=== PATIENT | female | born 1990 | race Caucasian/White ===

== ENCOUNTER 2023-12-19 09:38 | Emergency (ER) | payer OTHER, SELFPAY ==
--- NOTE | ~2023-12-19 | US_ITS ---
EXAMINATION: US ABDOMEN LIMITED CLINICAL INFORMATION: Upper abdominal pain, right upper quadrant tenderness. COMPARISON: None available. TECHNIQUE: Real-time imaging of the right upper quadrant abdominal viscera. FINDINGS: PANCREAS: Normal head and body, the tail is obscured by bowel gas. LIVER: The liver is normal in size. The liver contour is normal. Parenchymal echogenicity is normal. 0.6 x 0.4 x 0.6 cm cyst with a single thin septation is seen within the left lobe. There is no intrahepatic biliary duct dilatation seen. GALLBLADDER: Normal. The gallbladder is physiologically distended without evidence of stones, sludge, polyps, wall thickening or pericholecystic fluid. COMMON BILE DUCT: Normal in caliber measuring 0.3 cm in diameter. RIGHT KIDNEY: Normal. No hydronephrosis. No renal calculi or focal parenchymal lesions. The kidney measures 10.1 cm in maximum dimension. FREE FLUID: None. US/US abdomen limited IMPRESSION: 1. 0.6 cm cyst with a single thin septation within the left lobe of the liver. 2. The tail of the pancreas is obscured by bowel gas.
[2023-12-19 09:41] VITALS: BP 131/70; PULSE 67; RESP 16; TEMP 36.6; O2SAT 100; BMI 26.6
[2023-12-19] MEDS: Ondansetron ODT 4 MG TAB.RAPDIS TRANSLINGU (09:46)
[2023-12-19 12:33] VITALS: BP 130/76; PULSE 76; RESP 18; TEMP 36.7; O2SAT 100
--- NOTE | 2023-12-19 12:33 | ED_ITS ---
HPI - General Adult General Chief complaint: Abdominal Pain Stated complaint: Weakness, abd pain Time Seen by Provider: 12/19/23 12:14 History of Present Illness HPI narrative: The patient is a 33-year-old female who says that she has a history of gastritis and irritable bowel syndrome. She says that yesterday she started having upper abdominal pain that was associated with nausea and vomiting. Later she also developed diarrhea. The pain was quite bad yesterday. It is still quite bad today but not as bad as yesterday. She has had similar episodes in the past. She has no history of abdominal surgeries. No definite fever. No urinary symptoms. She feels the pain primarily in her upper abdomen, possibly more on the right. Related Data Previous Rx's Medication Instructions Recorded famotidine 40 mg tablet 40 mg PO DAILY #30 tabs 12/19/23 Allergies Allergy/AdvReac Type Severity Reaction Status Date / Time Sulfa (Sulfonamide Allergy Rash Verified 12/19/23 09:41 Antibiotics) Review of Systems 2 Review of Systems: Yes all other systems are reviewed and are negative [facility] Social History Social History Advance Directives: No Physical Exam ED Vital Signs: Vital Signs - 24 hr 12/19/23 09:41 12/19/23 12:33 Temperature 98 F 98.0 F Pulse Rate 67 76 Respiratory Rate 16 18 Blood Pressure 131/70 130/76 Pulse Oximetry 100 100 Oxygen Delivery Method Room Air Room Air BMI result Body Mass Index 26.6 Const Other: The patient is awake, alert, pleasant, cooperative. She look mildly uncomfortable but not acutely toxic. HENMT Other: The face is symmetrical. ?Mucous membranes moist. Eyes Other: Pupils are round equal, conjunctivae are clear, extraocular movements intact Resp Effort & Inspection: normal respiratory effort Auscultation: clear to auscultation bilaterally Cardio Rate: regular rate Rhythm: regular rhythm Heart sounds: S1 normal heart sound present and S2 normal heart sound present GI Other: The patient is tender across the upper abdomen. She does not have lower abdominal tenderness, specifically she does not have right lower quadrant tenderness. General: Yes no CVA tenderness Back/Spine/Pelvis Back: no CVA tenderness Skin Other: Skin is dry and unremarkable Neuro Other: Awake, alert, oriented, appropriate, grossly neurologically intact. Extrem Other: No peripheral edema, no calf swelling or tenderness, no asymmetry Medications Administered Discontinued Medications Generic Name Dose Route Start Last Admin Trade Name Mindi PRN Reason Stop Dose Admin Droperidol 0.625 mg 12/19/23 12:31 12/19/23 12:55 Droperidol 5 Mg/2 Ml Vial IVPUSH 12/19/23 12:32 0.625 mg ONCE ONE Administration Famotidine 20 mg 12/19/23 12:31 12/19/23 12:55 Famotidine/Pf 20 Mg/2 Ml Vial IVPUSH 12/19/23 12:32 20 mg ONCE ONE Administration Sodium Chloride 1,000 mls @ 999 mls/hr 12/19/23 12:45 12/19/23 12:55 Ns IV 12/19/23 13:45 999 mls/hr .Q1H1M MONET Administration Ondansetron HCl 4 mg 12/19/23 09:43 12/19/23 09:46 Ondansetron Odt 4 Mg Tab.Rapdis TRANSLINGU 12/19/23 09:44 4 mg ONCE ONE Administration Medical Decision Making Medical Decision Making MDM Narrative: Patient is a 33-year-old who reports a history of gastritis who says the yesterday she developed abdominal pain associated with vomiting and then diarrhea. She had no lower abdominal tenderness. Specifically no right lower quadrant tenderness. Her labs are very unremarkable. An ultrasound of the gallbladder shows no acute finding. She was treated symptomatically with famotidine and droperidol and IV fluids. She felt considerably better and she seemed safe for discharge. She was encouraged to contact her health insurance, [email or web address], for assistance in getting connected with a primary care doctor. She was given a prescription for famotidine. Lab Data 12/19/23 12:41 12/19/23 12:41 Labs: Lab Results 12/19/23 12/19/23 Range/Units 12:40 12:41 WBC 6.6 (4.8-10.8) X10*3/uL RBC 4.26 (4.20-5.50) X10*6/uL Hgb 13.4 (12.0-16.0) g/dl Hct 40.1 (37.0-47.0) % MCV 94.1 (80.0-98.0) fL MCH 31.5 (27.0-33.0) pg MCHC 33.4 (31.0-35.0) g/dl RDW 13.2 (11.0-16.0) % Plt Count 287 (160-400) X10*3/uL MPV 9.3 L (9.4-12.3) fL Immature Gran % (Auto) 0.3 (0.0-0.4) % Neut % (Auto) 55.4 (45-73) % Lymph % (Auto) 33.9 (20-40) % [place] % (Auto) 7.1 (2-11) % Eos % (Auto) 2.4 (0-4) % Baso % (Auto) 0.9 (0-2) % Lymph # (Auto) 2.3 (1.2-4.9) X10*3/uL [place] # (Auto) 0.5 (0.1-1.2) X10*3/uL Eos # (Auto) 0.2 (0.0-0.4) X10*3/uL Baso # (Auto) 0.1 (0.0-0.2) X10*3/uL Abs Immat Gran (auto) 0.02 (0.00-0.03) X10*3/uL Absolute Neuts (auto) 3.7 (2.0-8.3) x10*3/uL Absolute Nucleated RBC 0.000 (0.0-0.012) X10*3/uL Nucleated RBC % (auto) 0.0 (0.0-0.2) /100WBC Sodium 137 (135-145) mmol/L Potassium 3.7 (3.3-5.1) mmol/L Chloride 106 (96-108) mmol/L Carbon Dioxide 26 (22-29) mmol/L Anion Gap 9 L (12-20) BUN 9 (9-16) mg/dL Creatinine 0.86 (0.5-1.4) mg/dL Estim Creat Clear Calc 96.2 Estimated GFR > 60 Random Glucose 86 (60-115) mg/dL Calcium 8.9 (8.4-10.2) mg/dL Total Bilirubin 0.5 (0.0-1.0) mg/dL Direct Bilirubin 0.2 (0.0-0.5) mg/dL AST 12 (5-31) U/L ALT 11 (0-31) U/L Alkaline Phosphatase 79 (39-117) U/L C-Reactive Protein < 0.10 (< or = 0.50) mg/dL Total Protein 7.3 (6.5-8.0) g/dL Albumin 4.0 (3.5-5.0) g/dL Lipase 18 (8-78) U/L Beta HCG, Quant < 2 mIU/mL Urine Color Yellow Urine Appearance Cloudy Urine pH 6.5 (5.0-9.0) Ur Specific Herman 1.020 (1.005-1.025) Urine Protein Negative (Neg-Trace) mg/dL Urine Glucose (UA) Negative (Negative) mg/dL Urine Ketones Negative (Negative) mg/dL Urine Blood Negative (Negative) Urine Nitrite Negative (Negative) Ur Leukocyte Esterase Small (1+) H (Negative) Urine RBC 0-2 (0-2) /HPF Urine WBC 0-5 (0-5) /HPF Ur Squamous Epith Cells 11-20 (0-2) /HPF Urine Bacteria Trace (None Seen) Hyaline Casts 0-2 (0-2) /LPF Discharge Plan Discharge Clinical Impression: Abdominal pain, vomiting, and diarrhea Patient Disposition: Home, Self-Care Additional Instructions: Your testing in the emergency room today has been very reassuring. Please rest and take it easy today. Eat simple foods today like rice or toast. Drink clear fluids. I have sent a prescription for additional Pepcid (famotidine) to your pharmacy. Please contact your insurance company to find out who might be your primary care doctor. Please try to make an appointment with a primary care doctor soon. Return to the emergency room if significantly worse. Prescriptions: New famotidine 40 mg tablet 40 mg PO DAILY Qty: 30 0RF Discharge Date/Time: 12/19/23 15:24
[2023-12-19 12:46] LABS: MANUAL DIFF FLAG NO
[2023-12-19 12:47] LABS: Basophils Absolute Auto 0.1 X10*3/uL (0.0-0.2); Basophils Percent Auto 0.9 % (0-2); Eosinophils Absolute Auto 0.2 X10*3/uL (0.0-0.4); Eosinophils Percent Auto 2.4 % (0-4); Hematocrit 40.1 % (37.0-47.0); Hemoglobin 13.4 g/dl (12.0-16.0); Imm Gran Abs Auto 0.02 X10*3/uL (0.00-0.03); Imm Gran Pct Auto 0.3 % (0.0-0.4); Lymphocytes Absolute Auto 2.3 X10*3/uL (1.2-4.9); Lymphocytes Percent Auto 33.9 % (20-40); Mean Corpuscular HGB Conc 33.4 g/dl (31.0-35.0); Mean Corpuscular Hemoglobin 31.5 pg (27.0-33.0); Mean Corpuscular Volume 94.1 fL (80.0-98.0); Mean Platelet Volume 9.3 fL (9.4-12.3); Monocytes Absolute Auto 0.5 X10*3/uL (0.1-1.2); Monocytes Percent Auto 7.1 % (2-11); Neutrophils Absolute Auto 3.7 x10*3/uL (2.0-8.3); Neutrophils Percent Auto 55.4 % (45-73); Platelet Count 287 X10*3/uL (160-400); Red Blood Count 4.26 X10*6/uL (4.20-5.50); Red Cell Distribution Width 13.2 % (11.0-16.0); White Blood Count 6.6 X10*3/uL (4.8-10.8)
[2023-12-19 12:53] LABS: Appearance Urine Cloudy; Color Urine Yellow; Glucose Urine UA Negative (Negative); Leukocyte Esterase Urine Small (1+) (Negative); Nitrite Urine Negative (Negative); PH 6.5 (5.0-9.0); UMIC TRIGGER UACC YES; Urine Blood Negative (Negative); Urine Ketones Negative (Negative); Urine Protein Negative (Neg-Trace)
[2023-12-19] MEDS: 0.9 % Sodium Chloride 1,000 ML 999 ML IV (12:55)
[2023-12-19] MEDS: Famotidine/PF 20 MG/2 ML VIAL IVPUSH (12:55)
[2023-12-19] MEDS: droPERidol 5 MG/2 ML VIAL 0.625 MG IVPUSH (12:55)
[2023-12-19 13:05] LABS: Hyaline Casts Urine 0-2 /LPF (0-2); RBC Urine 0-2 /HPF (0-2); UACC Culture Trigger YES; WBC Urine 0-5 /HPF (0-5)
[2023-12-19 13:06] LABS: Bacteria Urine Trace (None Seen)
[2023-12-19 13:10] LABS: Alanine Aminotransferase 11 U/L (0-31); Alkaline Phosphatase 79 U/L (39-117); Anion Gap 9 (12-20); Aspartate Amino Transferase 12 U/L (5-31); Bilirubin Direct 0.2 mg/dL (0.0-0.5); Bilirubin Total 0.5 mg/dL (0.0-1.0); Blood Urea Nitrogen 9 mg/dL (9-16); C Reactive Protein < 0.10 mg/dL (< or = 0.50); Calcium 8.9 mg/dL (8.4-10.2); Carbon Dioxide 26 mmol/L (22-29); Chloride 106 mmol/L (96-108); Creatinine Clr Calc Pharmacy 96.2; Estimated Glomerular Filt Rate > 60; Glucose Random 86 mg/dL (60-115); Lipase 18 U/L (8-78); Potassium 3.7 mmol/L (3.3-5.1); Sodium 137 mmol/L (135-145); Total Protein 7.3 g/dL (6.5-8.0)
[2023-12-19 13:14] LABS: HCG Quantitative < 2 mIU/mL
== END 2023-12-19 15:24 | disposition home or self-care (01) ==
PROVIDERS: Emergency Provider Emergency Medicine
DX: R10.10 Upper abdominal pain, unspecified (principal); R11.2 Nausea with vomiting, unspecified; R19.7 Diarrhea, unspecified
CPT/HCPCS: 36415; 76705; 80048; 80076; 81001; 83690; 84702; 85025; 86140; 87086; 96374; 96375; 99283; 99284; J1790

== ENCOUNTER 2025-04-01 09:22 | Outpatient (AMB) | payer OTHER, SELFPAY ==
--- OUTSIDE RECORDS SUMMARY | 2025-04-01 09:57 | XMS_ITS | Clinical Summary ---
Author Organization [employer] Address [address] [place] [address] Care Team Providers Care Cartridge Gauger Name Role Phone Unavailable Primary Care Provider Unavailabl e Social History Tobacco Use Types Packs/Day Years Used Date Smoking Tobacco: Never Assessed Comments Unknown Sex and Gender Information Value Date Recorded Sex Assigned at Not on file Legal Sex Female 10:57 AM EST Gender Identity Not on file Sexual Orientation Not on file Plan of Treatment Health Maintenance Due Date Last Done Comments Depression Screening 1990 Alcohol/Substance Use Screening 2002 Tobacco Screening 2002 Family Planning (PISQ) 2005 DTaP/Tdap/Td Vaccines (1 - Tdap) 2009 Hepatitis B Vaccines (1 of 3 - 19+ 3-dose series) 2009 Pap Smear 2011 Cervical Cancer Screening 2020 HPV/Cotest 2020 COVID-19 Vaccine ( - 2023-2 5 season) 2024 Influenza Vaccine (#1) 2024 Zoster Vaccines (1 of 2) 2040 RSV Patients and Pa tients Aged 60 years or older (1 - 1-dose 75+ series) 2065 HIB Vaccines Aged Out No longer eligi ble based on patient's age to complete this topic HPV Vaccines Aged Out No longer eligi ble based on patient's age to complete this topic Hepatitis A Vaccines Aged Out No long er eligible based on patient's age to complete this topic IPV Vaccines Aged Out No longer eligi ble based on patient's age to complete this topic Meningococcal Vaccine Aged Out No whitley ricardo eligible based on patient's age to complete this topic Pneumococcal Vaccine: Pediat rics (0 to 5 Years) and At-Risk Patients (6 to 49) Years) Aged Out No longer eligible b ased on patient's age to complete this topic RSV under 20 months Aged Out No longe r eligible based on patient's age to complete this topic Rotavirus Vaccines Aged Out No longer eligible based on patient's age to complete this topic
--- NOTE | 2025-04-01 10:26 | MHC.PC.OV ---
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 Allergies Sulfa (Sulfonamide Antibiotics) Allergy (Verified 04/01/25 10:28) Rash Tobacco use date assessed: 04/01/25 Dental Screening Dental Screen Date: 04/01/25 Did you have a dental visit in the last 12 months?: Yes Did you have a dental problem in the last 6 months where you did not have access to dental care?: No Was dental information given to patient?: No HPI HPI Comments History of Present Illness Details This is a 34-year-old female with a past medical history of asthma, IBS, acid reflux and low back pain presenting to establish care and have a physical exam. She was last seen in primary care while living in [place]. She relocated 2 years ago. She is accompanied to the appointment by her partner. Asthma-she has had viral induced symptoms since she was younger. She needs a rescue inhaler. She does not have symptoms with exercise. She last went to the ED for an asthma exacerbation when she was sick a couple of years ago. She is a nonsmoker but vapes occasionally. She endorses longstanding history of acid reflux, gastritis and IBS. She is taking Pepcid 40 mg daily. She was followed by Gastroenterology while living in [place]. She was treated for Helicobacter pylori infection in November of 2014. Reports having sigmoidoscopy in [place] but no colonoscopy. She endorses intermittent bloating, abdominal pain and occasional nausea which is alleviated when she has diarrhea. There is no blood in stools. Denies vomiting. Weight is stable. Peppers exacerbate her symptoms. She also feels that richer foods irritate her stomach so she has fat free or skin milk. She tolerates this fine. Endorses bilateral lower back pain for years. It is worse when she is trying to sleep at night or when she is bending forward or backwards. Endorses tingling in her feet when she is sleeping at night which is alleviated by lifting her legs onto a pillow. Pain in her back is described as aching and sharp. She has been treated with muscle relaxants in the past which helped. No history of surgeries or trauma. Denies saddle distribution numbness or tingling or loss of bowel or bladder control. Denies leg weakness. She has her vaccine record at home. She will get this to the office. ROS: Constitutional: No unexplained weight loss, fever, chills, fatigue or night sweats. Eyes: No vision changes, blurry vision, double vision, eye pain, eye redness, eye discharge. ENT: No hearing loss, sneezing, congestion, runny nose or sore throat. Respiratory: No shortness of breath, cough or sputum production. Cardiovascular: No chest pain, chest pressure or chest discomfort. No palpitations or pedal edema. Gastrointestinal: See HPI Genitourinary: No dysuria, hematuria, urinary frequency. Neurologic: No headache, dizziness, syncope, unilateral weakness, ataxia or numbness in extremities Musculoskeletal: See HPI Hematologic/Lymphatics: No bleeding or bruising. No painful lymph nodes. Skin: No rash or itching. Endocrine: No cold or heat intolerance. No polyuria or polydipsia. Psychiatric: No depression or anxiety. No SI/HI. Physical exam: Constitutional: Alert, in no distress. Head: Normocephalic. Eyes: Pupils are equal, round and reactive to light. Extraocular muscles intact. Ear, Nose and Throat: Canals clear. TMs normal. Normal nasal mucosa. No nasal discharge. No oral lesions. Neck: Supple, Full range of motion. No lymphadenopathy. No palpable thyroid masses. Respiratory: Clear to auscultation. Cardiovascular: S1 S2 regular. No murmurs. No carotid bruits. Gastrointestinal: Abdomen soft, non-tender, non-distended. Normal bowel sounds. No palpable masses. Neurologic: No focal neurological deficits. Symmetric patellar reflexes. Moves all extremities spontaneously. Sensation intact bilaterally. Skin: No rashes Musculoskeletal: +lower back pain with flexion and extension. Full range of motion. No midline spinal tenderness. Negative straight leg raises bilaterally. Lower extremity strength 5/5 bilaterally. Extremities: Warm and well perfused. No clubbing, cyanosis or edema. Intact peripheral pulses. Psychiatric: Normal mood and affect [facility] Medical History (Updated 04/02/25 @ 09:23 by TOSHIA Yi) Asthma Low back pain Tingling of both feet Routine physical examination IBS (irritable bowel syndrome) GERD (gastroesophageal reflux disease) Family History (Updated 04/01/25 @ 10:31 by Kelsea Whelan MA) Mother Hypertension FHx: mental illness Maternal Grandmother Hypertension Hyperlipemia Diabetes History of thyroid disorder Social History (Updated 04/01/25 @ 10:31 by Kelsea Whelan MA) Housing: House Alcohol intake: never Patient Tobacco Use Status: Never used Tobacco e-Cigarette/Vaping Use: Never Used Second Hand Smoke Exposure: No service: No Current occupational status: employed 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 1. Little interest or pleasure in doing things: not at all 2. Feeling down, depressed, or hopeless: not at all 3. Trouble falling or staying asleep, or sleeping too much: several days 4. Feeling tired or having little energy: several days 5. Poor appetite or overeating: not at all 6. Feeling bad about yourself - or that you are a failure or have let yourself or your family down: not at all 7. Trouble concentrating on things, such as reading the newspaper or watching television: not at all 8. Moving or speaking so slowly that other people could have noticed. Or the opposite - being so fidgety or restless that you have been moving around a lot more than usual: not at all 9. Thoughts that you would be better off or of hurting yourself in some way: not at all Total score: 2 Depression Screening Interpretation: Negative Depression Screening Done: Yes 53150 - PHQ-9 Billing: Yes Source: Developed by Drs. Blaine Goodson, Marycruz Stark, Helio Sorensen and colleagues, with an educational adry from [employer]. Thrive Questionnaire Date Thrive assessed: 04/01/25 I am a: Patient What is your living situation today?: I have a steady place to live Within the past 12 months, did the food you bought not last and you didn't have the money to get more?: Never true Within the past 12 months, did you worry whether your food would run out before you got money to buy more?: Never true Do you have trouble paying for medicines?: No Do you have trouble getting transportation to medical appointments?: No Do you have trouble paying your heating and electricity bill?: No Do you have trouble taking care of your child, family member or friend?: No Do you have trouble with day-to-day activities such as bathing, preparing meals, shopping, managing finances, etc.?: No Are you currently unemployed and looking for a job?: No Are you interested in more education?: Yes Please select the resources that you would like help with: None Currently or been in a relationship where the following occur: No concerns reported THRIVE Score: 0 AUDIT C Alcohol Use Questionnaire (AUDIT-C) 1. How often do you have a drink containing alcohol?: Monthly or less 2. How many drinks containing alcohol do you have on a typical day when you are drinking?: 1 or 2 Total Score: 1 Score Reviewed/Action Taken: No GARFIELD-7 AMB Questionnaire GARFIELD-7 Date GARFIELD - 7 assessed: 04/01/25 Feeling nervous, anxious, or on edge: 0 = Not at all Not being able to stop or control worryin = Not at all Worrying too much about different things: 0 = Not at all Trouble relaxin = Not at all Being so restless that it is hard to sit still: 0 = Not at all Becoming easily annoyed or irritable: 0 = Not at all Feeling afraid as if something awful might happen: 0 = Not at all Total GARFIELD-7 score (0-4 normal; 5-9 mild; 10-14 moderate; 15-21 severe): 0 Source: Developed by Drs. Blaine Goodson, Marycruz Stark, Helio Sorensen and colleagues, with an educational adry from [employer]. GARFIELD-7 Assessment Billing GARFIELD-7 Assessment Tool: GARFIELD-7 Assessment 55593 Physical exam (Primary Care) Vital Signs: Last Vital Signs Temp 98.6 F 04/01/25 10:31 Pulse 78 04/01/25 10:31 BP 100/62 04/01/25 10:31 Pulse Ox 98 04/01/25 10:31 Oxygen Delivery Method Room Air 04/01/25 10:31 BMI result Body Mass Index 30.1 Tobacco/Smoking Status: Tobacco use Status Tobacco use date assessed 04/01/25 04/01/25 10:35 Patient Tobacco Use Status Never used Tobacco 04/01/25 10:35 e-Cigarette/Vaping Use Never Used 04/01/25 10:35 PHQ-9: PHQ-9 Score PHQ-9: Total score 2 04/01/25 10:47 Depression Screening Interpretation: Negative Thrive Assessment: Date of Thrive Assessment Date Thrive assessed 04/01/25 04/01/25 10:35 Currently or been in a relationship where the following occur: No concerns reported Coding Level of Care Code New Pt Level 3 (88874) New Pt Prev Care 18-39yr(15336 Diagnoses Low back pain M54.50 Tingling of both feet R20.2 Routine physical examination Z00.00 IBS (irritable bowel syndrome) K58.9 GERD (gastroesophageal reflux disease) K21.9 Asthma J45.909 Additional Codes GARFIELD-7 Assessment Billing - GARFIELD-7 Assessment Tool: GARFIELD-7 Assessment 70954 ([id number]) PHQ-9 - 14233 - PHQ-9 Billing: Yes ([id number]) Assessment & Plan Assessment & Plan (1) Low back pain: Code(s): M54.50 - Low back pain, unspecified Category: Medical Plan: Check x-ray and Lyme serology. To consider referral to physical therapy pending results. Trial of cyclobenzaprine 5-10 mg at bedtime as needed. Cautioned not to drive or operate heavy machinery after taking the medication because it is sedating. (2) Tingling of both feet: Code(s): R20.2 - Paresthesia of skin Category: Medical Plan: Ordered x-ray of the lumbosacral spine, EMG and labs for evaluation. (3) Routine physical examination: Code(s): Z00.00 - Encounter for general adult medical examination without abnormal findings Category: Medical Plan: Patient is seen today for a routine physical. As part of this visit we reviewed the following issues, which are considered and essential part of preventative health in this age group: - Breast Cancer screening - Annual Securities Analyst exam - Blood pressure screening annually - Cholesterol screening - Osteoporosis prevention including calcium/vitamin D intake, weight bearing exercise & smoking cessation - Nutritional and exercise counseling - Counseling of injury prevention including fire prevention, smoke alarms and seat belt usage - Screening for depression - Prevention of and/or testing for infectious diseases - Education about skin cancer - Recommendations about immunizations - Recommendation of an eye exam - Screening for substance abuse (4) IBS (irritable bowel syndrome): Code(s): K58.9 - Irritable bowel syndrome, unspecified Category: Medical Plan: Avoid processed foods. Reviewed importance of hydration and exercise. Continue famotidine. Check GI labs and H pylori stool antigen. Referred to Gastroenterology. (5) GERD (gastroesophageal reflux disease): Code(s): K21.9 - Gastro-esophageal reflux disease without esophagitis Category: Medical Plan: Avoid spicy and acidic foods. Avoid eating close to bedtime. Continue famotidine. See above. Refer to Gastroenterology. (6) Asthma: Code(s): J45.909 - Unspecified asthma, uncomplicated Category: Medical Plan: Continue albuterol 2 puffs every 4 hours as needed for coughing, wheezing and shortness of breath. Plan Follow up in 8-10 weeks. Orders: Orders Amylase 04/01/25 K21.9 - Gastro-esophageal reflux disease without esophagitis, K58.9 - Irritable bowel syndrome, unspecified TSH reflex Free T4 04/01/25 K21.9 - Gastro-esophageal reflux disease without esophagitis, K58.9 - Irritable bowel syndrome, unspecified Lipase 04/01/25 K21.9 - Gastro-esophageal reflux disease without esophagitis, K58.9 - Irritable bowel syndrome, unspecified Comprehensive Met. Panel 04/01/25 K21.9 - Gastro-esophageal reflux disease without esophagitis, K58.9 - Irritable bowel syndrome, unspecified Complete Blood Count Auto Diff 04/01/25 K21.9 - Gastro-esophageal reflux disease without esophagitis, K58.9 - Irritable bowel syndrome, unspecified Lipid Panel 04/01/25 E78.5 - Hyperlipidemia, unspecified, K21.9 - Gastro-esophageal reflux disease without esophagitis, K58.9 - Irritable bowel syndrome, unspecified H pylori Ag Stool 04/01/25 K21.9 - Gastro-esophageal reflux disease without esophagitis, K58.9 - Irritable bowel syndrome, unspecified Vitamin D 25-OH (D2 and D3) 04/01/25 M85.80 - Other specified disorders of bone density and structure, unspecified site, R20.2 - Paresthesia of skin Vitamin B12 04/01/25 R20.2 - Paresthesia of skin, Z91.89 - Other specified personal risk factors, not elsewhere classified IRON PROFILE 04/01/25 D64.9 - Anemia, unspecified, R20.2 - Paresthesia of skin XR lumbar spine 2-3V 04/01/25 M54.50 - Low back pain, unspecified NE electromyogram (EMG) 04/01/25 R20.2 - Paresthesia of skin Lyme IgG/IgM w/reflex to WB Today M54.50 - Low back pain, unspecified, R20.2 - Paresthesia of skin Referrals Gastroenterology Referral K21.9 - Gastro-esophageal reflux disease without esophagitis, K58.9 - Irritable bowel syndrome, unspecified DIRECTOR OF CATERING Referral Z00.00 - Encounter for general adult medical examination without abnormal findings Medications: New albuterol sulfate 90 mcg/actuation 2 inhalations inhalation .every 4 hours 30 days PRN 8.5 grams 0RF shortness of breath or wheezing cyclobenzaprine 5 - 10 mg (1 - 2 x 5 mg) PO BEDTIME PRN 60 tabs 1RF muscle spasm
[2025-04-01 10:31] VITALS: BP 100/62; PULSE 78; TEMP 37; O2SAT 98; BMI 30.1
== END 2025-04-01 11:22 | disposition home or self-care (01) ==
LOC: HO.HMCFM 09:23
PROVIDERS: Visit Provider Physician Assistant Medical
DX: Z00.00 Encounter for general adult medical examination without abnormal findings (principal); M54.50 Low back pain, unspecified; R20.2 Paresthesia of skin; K58.9 Irritable bowel syndrome, unspecified; K21.9 Gastro-esophageal reflux disease without esophagitis; J45.909 Unspecified asthma, uncomplicated

== ENCOUNTER → 2025-04-01 09:22 | Outpatient (BNVA) | payer OTHER, SELFPAY | PROVIDERS: Visit Provider Physician Assistant Medical | DX: Z00.01 Encounter for general adult medical examination with abnormal findings (principal); M54.50 Low back pain, unspecified; R20.2 Paresthesia of skin; K58.9 Irritable bowel syndrome, unspecified; K21.9 Gastro-esophageal reflux disease without esophagitis; J45.909 Unspecified asthma, uncomplicated; Z79.899 Other long term (current) drug therapy | CPT/HCPCS: 96127; 99202; 99385 ==

== ENCOUNTER 2025-04-06 09:11 | Outpatient (REF) | payer OTHER, SELFPAY ==
[2025-04-06 09:32] LABS: MANUAL DIFF FLAG NO
[2025-04-06 09:52] LABS: Basophils Absolute Auto 0.1 X10*3/uL (0.0-0.2); Basophils Percent Auto 1.4 % (0-2); Eosinophils Absolute Auto 0.4 X10*3/uL (0.0-0.4); Hematocrit 37.7 % (37.0-47.0); Hemoglobin 12.8 g/dl (12.0-16.0); Imm Gran Abs Auto 0.01 X10*3/uL (0.00-0.03); Imm Gran Pct Auto 0.2 % (0.0-0.4); Lymphocytes Absolute Auto 2.1 X10*3/uL (1.2-4.9); Mean Corpuscular Hemoglobin 30.7 pg (27.0-33.0); Mean Corpuscular Volume 90.4 fL (80.0-98.0); Mean Platelet Volume 9.2 fL (9.4-12.3); Monocytes Absolute Auto 0.5 X10*3/uL (0.1-1.2); Monocytes Percent Auto 7.9 % (2-11); Neutrophils Absolute Auto 2.8 x10*3/uL (2.0-8.3); Neutrophils Percent Auto 48.5 % (45-73); Platelet Count 309 X10*3/uL (160-400); Red Blood Count 4.17 X10*6/uL (4.20-5.50); Red Cell Distribution Width 13.2 % (11.0-16.0); White Blood Count 5.9 X10*3/uL (4.8-10.8)
--- OUTSIDE RECORDS SUMMARY | 2025-04-06 09:52 | XMS_ITS | Clinical Summary ---
Author Organization [employer] Address [address] [place] [address] Care Team Providers Care Collector Of Aquarium Specimens Name Role Phone Unavailable Primary Care Provider [...] patient's age to complete this topic Meningococcal B Vaccine Aged Out No l onger eligible based on patient's age to complete [...]
[2025-04-06 10:48] LABS: Alanine Aminotransferase 14 U/L (0-31); Albumin Level 4.2 g/dL (3.5-5.0); Alkaline Phosphatase 86 U/L (39-117); Amylase 63 U/L (28-100); Anion Gap 10 (12-20); Aspartate Amino Transferase 18 U/L (5-31); Bilirubin Total 0.8 mg/dL (0.0-1.0); Blood Urea Nitrogen 10 mg/dL (9-16); Calcium 9.1 mg/dL (8.4-10.2); Carbon Dioxide 24 mmol/L (22-29); Chloride 107 mmol/L (96-108); Cholesterol 136 mg/dL (<200); Estimated Glomerular Filt Rate > 60; Glucose Random 79 mg/dL (60-115); HDL Cholesterol 48 mg/dL (>40); Iron 101 mcg/dL (30-160); LDL Cholesterol Calculated 79 mg/dL (<100); Lipase 17 U/L (8-78); Percent Iron Saturation 34 % (15-50); Potassium 3.8 mmol/L (3.3-5.1); Sodium 137 mmol/L (135-145); Total Iron Binding Capacity 301 mcg/dL (228-428); Total Protein 7.5 g/dL (6.5-8.0); Triglycerides 46 mg/dL (<150); Unsaturated Iron Binding 200 ug/dL
[2025-04-06 10:51] LABS: TSH reflex Free T4 1.58 uIU/mL (0.32-4.0)
[2025-04-06 10:55] LABS: Vitamin B12 381 pg/mL (200-900)
[2025-04-08 18:49] LABS: Lyme Abs Screen <0.90 index
[2025-04-10 17:28] LABS: Vitamin D 25-OH, D2 <4 ng/mL; Vitamin D 25-OH, D3 14 ng/mL; Vitamin D 25-OH, Total 14 ng/mL (30-100)
== END 2025-04-06 09:12 | disposition home or self-care (01) ==
LOC: HO.LAB 09:11
PROVIDERS: PCP Physician Assistant Medical; Visit Provider Physician Assistant Medical
DX: K58.9 Irritable bowel syndrome, unspecified (principal); K21.9 Gastro-esophageal reflux disease without esophagitis; M85.80 Other specified disorders of bone density and structure, unspecified site; R20.2 Paresthesia of skin; Z91.89 Other specified personal risk factors, not elsewhere classified; M54.50 Low back pain, unspecified; E78.5 Hyperlipidemia, unspecified; D64.9 Anemia, unspecified
CPT/HCPCS: 36415; 80053; 80061; 82150; 82306; 82607; 83540; 83690; 84443; 85025; 86617; 86618

== ENCOUNTER 2025-04-07 09:28 | Outpatient (REF) | payer OTHER, SELFPAY ==
--- NOTE | ~2025-04-07 | XR_ITS ---
EXAMINATION: XR LUMBOSACRAL SPINE CLINICAL INFORMATION: M54.50 - Low back pain, unspecified COMPARISON: None available. TECHNIQUE: Three views of the lumbosacral spine. FINDINGS: No acute cortical disruption or malalignment. Facet joint hypertrophy at L5-S1. No lytic or blastic lesions. Spina bifida occulta S1. XR/XR lumbar spine 2-3V IMPRESSION: Spondylosis L5-S1. Electronically signed by: Rudolph Lobato MD 04/07/2025 10:20 AM EDT
--- OUTSIDE RECORDS SUMMARY | 2025-04-07 10:47 | XMS_ITS | Clinical Summary ---
Author Organization [employer] Address [address] [facility] 7t [place] [address] Care Team Providers Care Acid Etch Operator Name Role Phone Unavailable Primary Care Provider [...]
== END 2025-04-07 09:29 | disposition home or self-care (01) ==
LOC: HO.XRAY 09:28
PROVIDERS: PCP Physician Assistant Medical; Visit Provider Physician Assistant Medical
DX: M54.50 Low back pain, unspecified (principal)
CPT/HCPCS: 72100

== ENCOUNTER → 2025-04-07 09:44 | Outpatient (BNV) | payer OTHER, SELFPAY | PROVIDERS: PCP Physician Assistant Medical; Visit Provider Radiology Diagnostic Radiology | DX: M47.816 Spondylosis without myelopathy or radiculopathy, lumbar region (principal) | CPT/HCPCS: 72100 ==

== ENCOUNTER 2025-04-08 11:54 | Outpatient (REF) | payer OTHER, SELFPAY ==
--- OUTSIDE RECORDS SUMMARY | 2025-04-08 12:21 | XMS_ITS | Clinical Summary ---
Author Organization [employer] Address [address] [facility] [address] [place] [address] Care Team Providers Care Software Development Engineer Name Role Phone Unavailable Primary Care Provider [...] Date Last Done Comments Depression Screening 1990 Disability Screening 1990 Alcohol/Substance Use Screening 2002 Tobacco [...]
== END 2025-04-08 11:55 | disposition home or self-care (01) ==
LOC: HO.LNP 11:54
PROVIDERS: Visit Provider Physician Assistant Medical
DX: K21.9 Gastro-esophageal reflux disease without esophagitis (principal); K58.9 Irritable bowel syndrome, unspecified
CPT/HCPCS: 87338

== ENCOUNTER 2025-04-20 08:33 | Outpatient (REF) | payer OTHER, SELFPAY ==
--- NOTE | 2025-04-20 08:37 | EMG_ITS ---
Bilateral tibial and peroneal motor studies were performed. Bilateral superficial peroneal and sural sensory studies were performed. Bilateral mixed plantar sensory studies were performed. Tibial H reflexes were obtained and paraspinal muscles were tested with a needle. IMPRESSION: Mild left axonal type peroneal neuropathy, not of entrapment type. Otherwise, no significant abnormality noted on this test. MD GARCIA Pedraza/OVIDIO / [id number]
--- OUTSIDE RECORDS SUMMARY | 2025-04-20 08:56 | XMS_ITS | Clinical Summary ---
Author Organization [employer] Address [address] [facility] [address] [place] [address] Care Team Providers Care Car Stower Name Role Phone Unavailable Primary Care Provider [...] - 2023-2 5 season) 2024 Influenza Vaccine (Season Ended) 2025 Zoster Vaccines (1 of 2) 2040 RSV [...]
== END 2025-04-20 08:34 | disposition home or self-care (01) ==
LOC: HO.NEURO 08:33
PROVIDERS: PCP Physician Assistant Medical; Visit Provider Physician Assistant Medical
DX: R20.2 Paresthesia of skin (principal); G62.9 Polyneuropathy, unspecified
CPT/HCPCS: 95886; 95913

== ENCOUNTER 2025-05-24 10:02 | Outpatient (AMB) | payer OTHER, SELFPAY ==
--- NOTE | 2025-05-24 10:06 | MHC.PC.OV ---
Vital Signs 05/24/25 10:09 Height 5 ft 6 in Weight 183 lb BMI 29.5 BP 102/64 Blood Pressure Location Rt brachial Position Sitting Pulse 95 Pulse Source Pulse Oximeter Temp 97.9 F Temp Source Temporal Artery Scan Pulse Oximetry (%) 98 Oxygen Delivery Method Room Air Intake Visit Reasons: 8-10 weeks recheck back and feet Intake Note: Emily presents in the office today for a follow up to her back and feet. Allergies Sulfa (Sulfonamide Antibiotics) Allergy (Verified 05/24/25 10:07) Rash Tobacco use date assessed: 05/24/25 Dental Screening Dental Screen Date: 05/24/25 Did you have a dental visit in the last 12 months?: Yes Did you have a dental problem in the last 6 months where you did not have access to dental care?: No Was dental information given to patient?: Patient has dentist HPI HPI Comments History of Present Illness Details This is a 34-year-old female with a past medical history of asthma, IBS, acid reflux and low back pain presenting for follow up. She is accompanied here by her spouse, Hope. Afghan video cell biology scientist: [id number] Catrina She tested positive for H pylori. She completed treatment. She is going to picker tender helper the kit today to do the test for eradication confirmation. She is feeling a lot better. She still gets some acid reflux and epigastric discomfort. Famotidine alleviate symptoms. She was referred to Gastroenterology. She is waiting to schedule until after she has a 2nd test completed. She was followed by Gastroenterology while living in [place]. She was treated for Helicobacter pylori infection in November of 2014. Reports having sigmoidoscopy in [place] but no colonoscopy. She had low vitamin-D, and she is taking a supplement. She will repeat the blood test in June. She endorsed bilateral lower back pain for years and tingling in her feet when she was sleeping at night alleviated by lifting her legs and to a pillow. She denied saddle distribution numbness or tingling or loss of bowel or bladder control or leg weakness. X-ray of the lumbar spine 04/07/2025 demonstrated spondylosis at L5-S1. She had an EMG that was consistent with left peroneal nerve neuropathy. She has an orthopedic evaluation scheduled. Physical therapy reached out, and she is going to call back to schedule. She is still having a lot of back pain. She uses cyclobenzaprine as needed which helps. It bothers her at night to sleep. She has a gynecology visit scheduled 08/31/2025. ROS: Constitutional: No unexplained weight loss, fever, chills, fatigue or night sweats. Respiratory: No shortness of breath, cough or sputum production. Cardiovascular: No chest pain, chest pressure or chest discomfort. No palpitations or pedal edema. Gastrointestinal: See HPI Genitourinary: No dysuria, hematuria, urinary frequency. Neurologic: No headache, dizziness, syncope, unilateral weakness, ataxia or numbness in extremities Musculoskeletal: See HPI Physical exam: Constitutional: Alert, in no distress. Neck: Supple, Full range of motion. No lymphadenopathy. Respiratory: Clear to auscultation. Cardiovascular: S1 S2 regular. No murmurs. No carotid bruits. Gastrointestinal: Abdomen soft, non-tender, non-distended. Normal bowel sounds. No palpable masses. Musculoskeletal: +lower back pain with flexion and extension. Full range of motion. No midline spinal tenderness. Negative straight leg raises bilaterally. Lower extremity strength 5/5 bilaterally. [facility] Medical History (Updated 05/24/25 @ 13:19 by TOSHIA Yi) Neuropathy of left peroneal nerve H. 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 Current occupational exposures/hazards: No Cognitive needs: No Hearing needs: No Vision needs: Yes Questionnaire Thrive Questionnaire Date Thrive assessed: 03/29/25 I am a: Patient What is your living situation today?: I have a steady place to live Within the past 12 months, did the food you bought not last and you didn't have the money to get more?: Never true Within the past 12 months, did you worry whether your food would run out before you got money to buy more?: Never true Do you have trouble paying for medicines?: No Do you have trouble getting transportation to medical appointments?: No Do you have trouble paying your heating and electricity bill?: No Do you have trouble taking care of your child, family member or friend?: No Do you have trouble with day-to-day activities such as bathing, preparing meals, shopping, managing finances, etc.?: No Are you currently unemployed and looking for a job?: No Are you interested in more education?: Yes Please select the resources that you would like help with: None Currently or been in a relationship where the following occur: No concerns reported THRIVE Score: 0 GARFIELD-7 AMB Questionnaire GARFIELD-7 Date GARFIELD - 7 assessed: 04/01/25 Source: Developed by Drs. Blaine Goodson, Marycruz Stark, Helio Sorensen and colleagues, with an educational adry from [employer]. Physical exam (Primary Care) Vital Signs: Last Vital Signs Temp 97.9 F 05/24/25 10:09 Pulse 95 05/24/25 10:09 BP 102/64 05/24/25 10:09 Pulse Ox 98 05/24/25 10:09 Oxygen Delivery Method Room Air 05/24/25 10:09 BMI result Body Mass Index 29.5 Tobacco/Smoking Status: Tobacco use Status Tobacco use date assessed 05/24/25 05/24/25 10:11 Patient Tobacco Use Status Never used Tobacco 05/24/25 10:09 e-Cigarette/Vaping Use Never Used 05/24/25 10:09 Thrive Assessment: Date of Thrive Assessment Date Thrive assessed 03/29/25 05/24/25 10:07 Currently or been in a relationship where the following occur: No concerns reported Coding Level of Care Code Est Pt Level 4 (67519) Complex EM visit Add On G2211 Diagnoses Chronic bilateral low back pain without sciatica M54.50; G89.29 Chronicity: chronic Back pain laterality: bilateral Sciatica presence: without sciatica Tingling of both feet R20.2 IBS (irritable bowel syndrome) K58.9 GERD (gastroesophageal reflux disease) K21.9 Assessment & Plan Assessment & Plan (1) Low back pain: Code(s): M54.50 - Low back pain, unspecified Category: Medical Qualifiers: Chronicity: chronic Back pain laterality: bilateral Sciatica presence: without sciatica Qualified Code(s): M54.50 - Low back pain, unspecified; G89.29 - Other chronic pain Plan: Continue cyclobenzaprine 5-10 mg at bedtime as needed. Cautioned not to drive or operate heavy machinery after taking the medication because it is sedating. Trial of gabapentin 300 mg 3 times daily as needed for pain. Cautioned not to drive or operate heavy machinery after taking the medication due to sedation. She is in physical therapy. If she has persistent symptoms we will schedule an MRI of her lower back and consider referral to specialty. (2) Tingling of both feet: Code(s): R20.2 - Paresthesia of skin Category: Medical Plan: See above notes on back pain. She has peroneal neuropathy on the left side. Orthopedic consult pending. Trial of gabapentin. (3) IBS (irritable bowel syndrome): Code(s): K58.9 - Irritable bowel syndrome, unspecified Category: Medical Plan: Avoid processed foods. Reviewed importance of hydration and exercise. Continue famotidine. (4) GERD (gastroesophageal reflux disease): Code(s): K21.9 - Gastro-esophageal reflux disease without esophagitis Category: Medical Plan: Avoid spicy and acidic foods. Avoid eating close to bedtime. Continue famotidine as needed. She was referred to Gastroenterology. She was treated for H pylori and we will have the test done to confirm eradication. Plan Follow up in 3 months. Medications: New gabapentin 300 mg PO TID PRN 90 caps 0RF pain famotidine 40 mg PO DAILY PRN 90 tabs 1RF acid reflux Discontinued famotidine Discontinued Reason: Doctor's Order 40 mg PO DAILY 30 tabs 0RF metronidazole Discontinued Reason: Doctor's Order 500 mg PO QID 14 days 56 tabs 0RF tetracycline Discontinued Reason: Doctor's Order 500 mg PO QID 14 days 56 caps 0RF bismuth subsalicylate Discontinued Reason: Duplicate 524 mg (2 x 262 mg) PO QID 14 days 112 tabs 0RF omeprazole Discontinued Reason: Doctor's Order 20 mg PO DAILY 28 caps 0RF
[2025-05-24 10:09] VITALS: BP 102/64; PULSE 95; TEMP 36.6; O2SAT 98; BMI 29.5
--- OUTSIDE RECORDS SUMMARY | 2025-05-24 10:44 | XMS_ITS | Clinical Summary ---
Author Organization [employer] Address [address] [facility] 7t [place] [address] Care Team Providers Care Precision Inspector Name Role Phone Unavailable Primary Care Provider [...] 2023-2 5 season) 2024 Influenza Vaccine (#1) 2025 Zoster Vaccines (1 of 2) 2040 [...] Years) and At-Risk Patients (6 to 49) Years Aged Out No longer eligible b ased on patient's age to complete this topic RSV under 20 months Aged Out No longe r eligible based on patient's age to complete this topic Rotavirus Vaccines Aged Out No longer eligible based on patient's age to complete this topic
== END 2025-05-24 10:35 | disposition home or self-care (01) ==
LOC: HO.HMCFM 10:03
PROVIDERS: PCP Physician Assistant Medical; Visit Provider Physician Assistant Medical
DX: M54.50 Low back pain, unspecified (principal); G89.29 Other chronic pain; R20.2 Paresthesia of skin; K58.9 Irritable bowel syndrome, unspecified; K21.9 Gastro-esophageal reflux disease without esophagitis

== ENCOUNTER → 2025-05-24 10:02 | Outpatient (BNVA) | payer OTHER, SELFPAY | PROVIDERS: PCP Physician Assistant Medical; Visit Provider Physician Assistant Medical | DX: M54.50 Low back pain, unspecified (principal); G89.29 Other chronic pain; R20.2 Paresthesia of skin; K58.9 Irritable bowel syndrome, unspecified; K21.9 Gastro-esophageal reflux disease without esophagitis | CPT/HCPCS: 99212 ==

== ENCOUNTER 2025-05-25 16:03 | Outpatient (REF) | payer OTHER, SELFPAY ==
--- OUTSIDE RECORDS SUMMARY | 2025-05-25 16:13 | XMS_ITS | Clinical Summary ---
Author Organization [employer] Address [address] [facility] 7t [place] [address] Care Team Providers Care Lacrosse Player Name Role Phone Unavailable Primary Care Provider [...]
== END 2025-05-25 16:04 | disposition home or self-care (01) ==
LOC: HO.LNP 16:03
PROVIDERS: Visit Provider Physician Assistant Medical
DX: A04.8 Other specified bacterial intestinal infections (principal)
CPT/HCPCS: 87338

== ENCOUNTER 2025-06-28 08:10 | Outpatient (REF) | payer OTHER, SELFPAY ==
--- OUTSIDE RECORDS SUMMARY | 2025-06-28 08:22 | XMS_ITS | Clinical Summary ---
Author Organization [employer] Address [address] [facility] 7t [place] [address] Care Team Providers Care Director Of Automation Name Role Phone Unavailable Primary Care Provider [...] Tobacco Screening 2002 Family Planning (PISQ) 2005 HPV Vaccines (1 - 3-dose series) 2005 DTaP/Tdap/Td Vaccines (1 - Tdap) 2009 Hepatitis B Vaccines (1 of 3 - 19+ 3-dose series) 2009 Pap Smear 2011 Cervical Cancer Screening 2020 HPV/Cotest 2020 COVID-19 Vaccine (1 - 2023-2 5 season) 2024 Influenza Vaccine [...]
== END 2025-06-28 08:11 | disposition home or self-care (01) ==
LOC: HO.HOSX 08:10
PROVIDERS: Visit Provider Physician Assistant
DX: Z13.89 Encounter for screening for other disorder (principal)

== ENCOUNTER 2025-07-14 10:00 | Outpatient (RCR) | payer OTHER, SELFPAY ==
--- NOTE | 2025-06-23 10:40 | MHC.PT.EP ---
[facility] [place] Office [place] Office [place] Office [address] Cordell Bernard [address] [phone] F: [phone] F: [phone] F: [phone] F: [phone] Physical Therapy Plan of Care Date of Evaluation: 06/23/25 Date of Surgery: n/a Diagnosis: Neuropathy of L peroneal nerve, LBP Assessment: Patient is a 34 year old female presenting to PT with complaints of pain in her low back. Pt reports onset of pain began > 1 year ago due to insidious onset. She presents today with impairments in pain, lumbar ROM, hip strength, core strength. 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 Pt expresses penitentiary goal of reducing pain, and is motivated to work towards this in PT. Clinical presentation today is most consistent with signs and sx associated with low back pain and pt will benefit from skilled PT 2 week x 4 weeks to address the following problems and impairments noted upon evaluation: pain, lumbar ROM, hip strength, core strength. These problems limit the patient with the following functional activities: sitting, standing, ADLs. The prescribed treatment plan of care is medically necessary. Co-morbidities of none were identified and taken into considerations of plan of care. Pt was educated on HEP, role of PT, prognosis, POC. Frequency and Duration: The patient will be seen 2 x week x 4 weeks Short Term Goals: Pt will demonstrate ability to move through lumbar ROM with min to no pain in 2 weeks. Pt will demonstrate improved hip MMT strength by 1/3 grade in 2 weeks. Jail Goals: Pt will demonstrate improved Rich score by 10% in 4 weeks for improved functional mobility. Pt will demonstrate ability to sit with min to no pain in 4 weeks for improved tolerance to work. Pt will demonstrate ability to complete ADLs with min to no pain in 4 weeks for return to PLOF. Treatment Plan: Modalities to reduce pain, spasms and effusion. Manual therapy to restore motion and function. Therapeutic exercise to improve strength and flexibility. Neuromuscular re-education for posture and balance. Therapeutic activities to return to functional activities of daily living. Electronically signed by: Vibha [place], PT, DPT, ATC Please sign and return to therapist. Thank you for your referral.
--- NOTE | 2025-08-12 07:20 | MHC.PT.DC ---
[facility] [place] Office [place] Office [place] Office [address] Cordell Bernard [address] [phone] F: [phone] F: [phone] F: [phone] F: [phone] Physical Therapy Discharge Report Diagnosis: Neuropathy of L peroneal nerve, LBP Date of Surgery: n/a Date of Evaluation: 06/23/25 Date of Discharge: 08/12/25 Treatments to Date: 3 Cancellations to Date: 3 No Shows to Date: 0 Discharge Status: Independent with HEP Patient Elected to Stop Discharge Summary: Chart was kept open x 30 days per pt request at last visit. This has passed and pt has not returned so therefore to be d/c per plan at last visit. Electronically signed by: Vibha Austin, PT, DPT, ATC Please sign and return to therapist. Thank you for your referral.
== END 2025-08-12 07:20 | disposition home or self-care (01) ==
LOC: HO.PTCHIC 10:00
PROVIDERS: PCP Physician Assistant Medical; Visit Provider Physician Assistant Medical
DX: G57.32 Lesion of lateral popliteal nerve, left lower limb (principal); M54.50 Low back pain, unspecified
CPT/HCPCS: 97110; 97140; 97161

== ENCOUNTER 2025-08-12 10:06 | Outpatient (REF) | payer OTHER, SELFPAY ==
--- OUTSIDE RECORDS SUMMARY | 2025-08-12 12:20 | XMS_ITS | Clinical Summary ---
Author Organization [employer] Address [address] [facility] 7t [place] [address] Care Team Providers Care Head Banquet Waitress Name Role Phone Unavailable Primary Care Provider [...] COVID-19 Vaccine (1 - 2023-2 5 season) 2025 Influenza Vaccine (#1) 2025 Zoster Vaccines (1 [...]
[2025-08-15 06:53] LABS: Quantiferon TB Gold Plus 1 NEGATIVE (NEGATIVE); TB Test (QFT) Mitogen -Nil 7.74 IU/mL; TB Test (QFT) Nil 0.06 IU/mL; TB Test (QFT) Plus TB1 -Nil 0.02 IU/mL; TB Test (QFT) Plus TB2 -Nil 0.01 IU/mL
[2025-08-18 14:18] LABS: Vitamin D 25-OH, D2 <4 ng/mL; Vitamin D 25-OH, D3 51 ng/mL; Vitamin D 25-OH, Total 51 ng/mL (30-100)
== END 2025-08-12 10:07 | disposition home or self-care (01) ==
LOC: HO.LAB 10:06
PROVIDERS: PCP Physician Assistant Medical; Visit Provider Physician Assistant Medical
DX: Z11.1 Encounter for screening for respiratory tuberculosis (principal); E55.9 Vitamin D deficiency, unspecified
CPT/HCPCS: 36415; 82306; 86480

== ENCOUNTER 2025-08-18 08:16 | Outpatient (REF) | payer OTHER, SELFPAY ==
--- OUTSIDE RECORDS SUMMARY | 2025-08-18 08:42 | XMS_ITS | Clinical Summary ---
Author Organization [employer] Address [address] [facility] 7t [place] [address] Care Team Providers Care Manager Loan Name Role Phone Unavailable Primary Care Provider [...]
== END 2025-08-18 08:17 | disposition home or self-care (01) ==
LOC: HO.LAB 08:16
PROVIDERS: Visit Provider Physician Assistant Medical
DX: Z13.89 Encounter for screening for other disorder (principal)

== ENCOUNTER 2025-08-19 11:21 | Outpatient (AMB) | payer OTHER, SELFPAY ==
--- NOTE | 2025-08-19 11:28 | MHC.PC.OV ---
Vital Signs 08/19/25 11:31 Height 5 ft 6 in Weight 189 lb BMI 30.5 BP 112/58 L Blood Pressure Location Rt brachial Position Sitting Pulse 90 Pulse Source Pulse Oximeter Temp 98.1 F Temp Source Temporal Artery Scan Pulse Oximetry (%) 98 Oxygen Delivery Method Room Air Intake Visit Reasons: back pain follow up Intake Note: Emily presents in the office today for a follow up to back pain. Set Up Mold Technician Required: Yes Set Up Mold Technician Name: Star Allergies Sulfa (Sulfonamide Antibiotics) Allergy (Verified 08/19/25 11:30) Rash Tobacco use date assessed: 08/19/25 Dental Screening Dental Screen Date: 08/19/25 Did you have a dental visit in the last 12 months?: No Did you have a dental problem in the last 6 months where you did not have access to dental care?: No Was dental information given to patient?: Patient declined HPI HPI Comments History of Present Illness Details This is a 34-year-old female with a past medical history of asthma, IBS, acid reflux and low back pain presenting for follow up. She is accompanied here by her spouse, Hope. [place] video educational sign language interpreter used for appointment. She tested positive for H pylori. She completed treatment. Test for eradication was negative. She is feeling a lot better. She still gets some acid reflux and epigastric discomfort. Famotidine alleviate symptoms. She was referred to Gastroenterology. The reached out to contact her, but she did not respond. Number was not in service. She was followed by Gastroenterology while living in [place]. She was treated for Helicobacter pylori infection in November of 2014. Reports having sigmoidoscopy in [place] but no colonoscopy. Vitamin-D deficiency-completed 12 week course of high dose D3. Vitamin-D is normal now. X-ray of the lumbar spine 04/07/2025 demonstrated spondylosis at L5-S1. She had an EMG that was consistent with left peroneal nerve neuropathy. She did physical therapy for her back pain, and this is much better. She uses gabapentin just as needed now. She endorses restless leg symptoms alleviated by gabapentin. I completed a form for her [employer] job. Weight lifting restriction for back pain done. ROS: Constitutional: No unexplained weight loss, fever, chills, fatigue or night sweats. Gastrointestinal: See HPI Neurologic: No headache, dizziness, syncope, unilateral weakness, ataxia or numbness in extremities Musculoskeletal: See HPI Physical exam: Constitutional: Alert, in no distress. Neck: Supple, Full range of motion. No lymphadenopathy. Respiratory: Clear to auscultation. Cardiovascular: S1 S2 regular. No murmurs. No carotid bruits. Musculoskeletal: No pain with flexion and extension today. Full range of motion. No midline spinal tenderness. Negative straight leg raises bilaterally. Lower extremity strength 5/5 bilaterally. [facility] Medical History (Updated 08/19/25 @ 13:11 by TOSHIA Yi) Restless legs Neuropathy of left peroneal nerve H. 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 Current occupational exposures/hazards: No Cognitive needs: No Hearing needs: No Vision needs: Yes Questionnaire Thrive Questionnaire Date Thrive assessed: 03/29/25 I am a: Patient What is your living situation today?: I have a steady place to live Within the past 12 months, did the food you bought not last and you didn't have the money to get more?: Never true Within the past 12 months, did you worry whether your food would run out before you got money to buy more?: Never true Do you have trouble paying for medicines?: No Do you have trouble getting transportation to medical appointments?: No Do you have trouble paying your heating and electricity bill?: No Do you have trouble taking care of your child, family member or friend?: No Do you have trouble with day-to-day activities such as bathing, preparing meals, shopping, managing finances, etc.?: No Are you currently unemployed and looking for a job?: No Are you interested in more education?: Yes Please select the resources that you would like help with: None Currently or been in a relationship where the following occur: No concerns reported THRIVE Score: 0 GARFIELD-7 AMB Questionnaire GARFIELD-7 Date GARFIELD - 7 assessed: 04/01/25 Source: Developed by Drs. Blaine Goodson, Marycruz Stark, Helio Sorensen and colleagues, with an educational adry from [employer]. Physical exam (Primary Care) Vital Signs: Last Vital Signs Temp 98.1 F 08/19/25 11:31 Pulse 90 08/19/25 11:31 BP 112/58 L 08/19/25 11:31 Pulse Ox 98 08/19/25 11:31 Oxygen Delivery Method Room Air 08/19/25 11:31 BMI result Body Mass Index 30.5 Tobacco/Smoking Status: Tobacco use Status Tobacco use date assessed 08/19/25 08/19/25 11:34 Patient Tobacco Use Status Never used Tobacco 08/19/25 11:31 e-Cigarette/Vaping Use Never Used 08/19/25 11:31 Thrive Assessment: Date of Thrive Assessment Date Thrive assessed 03/29/25 08/19/25 11:28 Currently or been in a relationship where the following occur: No concerns reported Coding Level of Care Code Est Pt Level 4 (35427) Complex EM visit Add On G2211 Diagnoses Chronic bilateral low back pain without sciatica M54.50; G89.29 Chronicity: chronic Back pain laterality: bilateral Sciatica presence: without sciatica Other irritable bowel syndrome K58.8 Irritable bowel syndrome type: other Gastroesophageal reflux disease without esophagitis K21.9 Esophagitis presence: without esophagitis Vitamin D deficiency E55.9 Restless legs G25.81 Assessment & Plan Assessment & Plan (1) Low back pain: Code(s): M54.50 - Low back pain, unspecified Category: Medical Qualifiers: Chronicity: chronic Back pain laterality: bilateral Sciatica presence: without sciatica Qualified Code(s): M54.50 - Low back pain, unspecified; G89.29 - Other chronic pain Plan: Continue cyclobenzaprine 5-10 mg at bedtime as needed. Cautioned not to drive or operate heavy machinery after taking the medication because it is sedating. She takes gabapentin as needed. Physical therapy was effective. If pain returns she will let me know. (2) IBS (irritable bowel syndrome): Code(s): K58.9 - Irritable bowel syndrome, unspecified Category: Medical Qualifiers: Irritable bowel syndrome type: other Qualified Code(s): K58.8 - Other irritable bowel syndrome Plan: Avoid processed foods. Reviewed importance of hydration and exercise. Continue famotidine. Refer to Gastroenterology. (3) GERD (gastroesophageal reflux disease): Code(s): K21.9 - Gastro-esophageal reflux disease without esophagitis Category: Medical Qualifiers: Esophagitis presence: without esophagitis Qualified Code(s): K21.9 - Gastro-esophageal reflux disease without esophagitis Plan: Avoid spicy and acidic foods. Avoid eating close to bedtime. Continue famotidine as needed. She was referred to Gastroenterology anew. (4) Vitamin D deficiency: Code(s): E55.9 - Vitamin D deficiency, unspecified Category: Medical Plan: Start vitamin-D 1000 IU daily. (5) Restless legs: Code(s): G25.81 - Restless legs syndrome Category: Medical Plan: Continue vitamin-D. Recommended stretching before bed, staying well hydrated and adequate nutrition. Avoid smoking and alcohol. Gabapentin 300 mg nightly as needed. Plan Schedule physical exam in March 2026. Orders: Referrals Gastroenterology Referral K21.9 - Gastro-esophageal reflux disease without esophagitis, K58.9 - Irritable bowel syndrome, unspecified Medications: New cholecalciferol (vitamin D3) 25 mcg PO DAILY 90 caps 1RF Discontinued cholecalciferol (vitamin D3) Discontinued Reason: Doctor's Order 1,250 mcg PO QWEEK 12 weeks 12 caps 0RF
[2025-08-19 11:31] VITALS: BP 112/58; PULSE 90; TEMP 36.7; O2SAT 98; BMI 30.5
--- OUTSIDE RECORDS SUMMARY | 2025-08-19 13:15 | XMS_ITS | Clinical Summary ---
Author Organization [employer] Address [address] [place] [address] Care Team Providers Care Senior Engineering Manager Name Role Phone Unavailable Primary Care Provider [...]
== END 2025-08-19 12:11 | disposition home or self-care (01) ==
LOC: HO.HMCFM 11:22
PROVIDERS: PCP Physician Assistant Medical; Visit Provider Physician Assistant Medical
DX: M54.50 Low back pain, unspecified (principal); G89.29 Other chronic pain; K58.8 Other irritable bowel syndrome; K21.9 Gastro-esophageal reflux disease without esophagitis; E55.9 Vitamin D deficiency, unspecified; G25.81 Restless legs syndrome

== ENCOUNTER → 2025-08-19 11:21 | Outpatient (BNVA) | payer OTHER, SELFPAY | PROVIDERS: PCP Physician Assistant Medical; Visit Provider Physician Assistant Medical | DX: M54.50 Low back pain, unspecified (principal); G89.29 Other chronic pain; K58.8 Other irritable bowel syndrome; K21.9 Gastro-esophageal reflux disease without esophagitis; E55.9 Vitamin D deficiency, unspecified; G25.81 Restless legs syndrome | CPT/HCPCS: 99212 ==